=== PATIENT | male | born 1985 | race Asian ===

== ENCOUNTER 2024-09-01 07:38 | Emergency (ER) | payer MEDICAID, SELFPAY ==
[2024-09-01 07:40] VITALS: BP 160/113; BP 161/115; PULSE 108; RESP 18; TEMP 36.7; O2SAT 96; BMI 22.4
--- NOTE | 2024-09-01 07:42 | PD.EDADULT ---
ED General RME/HPI General Chief complaint: Eye Problems Stated complaint: MEDICAL CLEARANCE Time Seen by Provider: 09/01/24 07:40 Arrival date/time: 09/01/24 07:38 Limitations: no limitations RME / HPI RME / HPI narrative: DR. FIELDS MAIN ED EVALUATION: 39 year old male with past medical history significant for bipolar disorder presents to the Emergency Department brought in by police as a medical clearance for purulent discharge in both eyes. No other symptoms reported at this time. Related Data Home Medications ?Medication ?Instructions ?Recorded ?Confirmed Unobtainable 12/24/17 12/24/17 Previous Rx's ?Medication ?Instructions ?Recorded tobramycin 0.3 % eye drops 1 drp ophthalmic (eye) Q2H #5 mL 09/01/24 Allergies Allergy/AdvReac Type Severity Reaction Status Date / Time No Known Allergies Allergy Verified 12/24/17 12:09 Review of Systems Review of Systems Systems Reviewed: All systems reviewed, normal except as documented Past Medical History Past Medical History PSYCHO/SOCIAL: Positive Bipolar Disorder Social History SMOKING STATUS: Current every day smoker SUBSTANCE USE: unknown ED Exam General Limitations: Present no limitations General appearance: Present alert, in no apparent distress and other (sitting in emergency gurney with his hands cuffed to the back) Head Head exam: Present atraumatic, normocephalic and normal inspection Eye Eye exam: Present other (purulent discharge both eyes) ENT ENT exam: Present normal exam, normal oropharynx and mucous membranes moist Neck Neck exam: Present normal inspection, full ROM and trachea midline Chest Chest inspection: Present normal inspection and symmetric chest wall rise Respiratory Respiratory exam: Present normal lung sounds bilaterally Cardiovascular Cardiovascular exam: Present regular rate, normal rhythm and normal heart sounds Abdominal Exam Abdominal exam: Present soft and normal bowel sounds Extremities Exam Extremities exam: Present normal inspection Back Exam Back exam: Present normal inspection Neurological Exam Neurological exam: Present alert, oriented X3 and CN II-XII intact Psychiatric Psychiatric exam: Present normal affect and normal mood Skin Skin exam: Present warm, dry, intact and normal color Course Quality Measures none Vital Signs Vital signs: Vital Signs Temperature 98.1 F 09/01/24 07:40 Pulse Rate 108 H 09/01/24 07:40 Respiratory Rate 18 09/01/24 07:40 Blood Pressure 160/113 H 09/01/24 07:40 Pulse Oximetry (%) 96 09/01/24 07:40 Oxygen Delivery Method Room Air 09/01/24 07:40 Discharge Plan Plan Patient Disposition: Nursing Home/Court/Law Patient condition on transfer: Stable Prescriptions/Referrals Prescriptions/Med Rec: New tobramycin 0.3 % drops 1 drp ophthalmic (eye) Q2H Qty: 5 0RF No Action Unobtainable Problem List Clinical Impression: Conjunctivitis Patient/Caregiver Discharge Instructions Discharge Activity: activity as tolerated Education Materials: Conjunctivitis Caused by Infection Print Language: Ghanaian MDM Clinical Information Provided by patient and law enforcement Medical Records Reviewed Nursing Home Meds/Rx Considered, not Ordered None Labs/Rad/Tests considered, not Ordered None Chronic Illness/Social Conditions Add or document further as needed: Bipolar disorder EKG EKG not done Lab Interpretation Labs: none Imaging Imaging interpretation: none Medication Administration(s) none Diagnosis Differential diagnosis: Conjunctivitis, eye discharge, medical clearance Most likely dx, and/or detailed dx discussion: Conjunctivitis Dispositon Disposition: Incarceration/CPS
--- NOTE | 2024-09-01 08:04 | PC.NURSE ---
Patient brought to ED by [place] [employer] for discharge from bilateral eyes. Patient was found publicly intoxicated. 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 Patient was refusing care by provider Dr. Rascon. Patient then agreed to be treated. MD aware of high BP and bilateral conjunctivitis.
[2024-09-01 08:40] VITALS: BP 141/91; PULSE 94; RESP 19; TEMP 36.9; O2SAT 96
== END 2024-09-01 09:24 ==
LOC: SERX 08:02
PROVIDERS: Emergency Provider Emergency Medicine
DX: Z02.89 Encounter for other administrative examinations (principal); H10.9 Unspecified conjunctivitis
CPT/HCPCS: 99281